=== PATIENT | female | born 1990 | race Caucasian/White ===

== ENCOUNTER 2023-11-19 12:42 | Emergency (ER) | payer OTHER ==
[~2023-11-19] VITALS: Wt 72.6 kg
[2023-11-19 15:40] LABS: BASO % 0.3 % (0.0-1.0); EOS # 0.1 10*3/uL (0.0-0.4); EOS % 1.5 % (1.0-4.0); HEMATOCRIT 36.7 % (37.0-47.0); LYMPH % 34.6 % (27.0-41.0); MEAN CELL VOLUME 95.6 fl (81.0-99.0); MEAN CORPUSCULAR HGB 32.3 pg (27.0-31.0); MEAN CORPUSCULAR HGB CONC 33.8 g/dl (33.0-37.0); MEAN PLATELET VOLUME 9.2 fl (9.6-12.3); MONO # 0.5 10*3/uL (0.1-1.0); MONO % 5.2 % (3.0-9.0); NEUT % 58.2 % (47.0-73.0); PLATELET COUNT AUTOMATED 266 10*3/uL (130-400); RED BLOOD COUNT 3.84 10*6/uL (4.10-5.10); RED CELL DISTRI WIDTH 12.4 % (0-14.5); WHITE BLOOD COUNT 8.7 10*3/uL (4.8-10.8)
[2023-11-19 16:04] LABS: ALKALINE PHOSPHATASE 60 U/L (46-116); BUN 12 mg/dl (9-23); CHLORIDE 106 mmol/L (98-107); LIPASE 27 U/L (12-53); SGPT/ALT 18 U/L (5-49)
[2023-11-19 16:05] LABS: BETA-HCG, QUANT < 3.0 mIU/mL (3-10)
[2023-11-19] MEDS ORDERED: MECLIZINE HCL25 M2 PO (18:24)
[2023-11-19] MEDS ORDERED: ONDANSETRON4 MG SL (18:24)
== END 2023-11-19 18:37 | disposition home or self-care (01) ==
LOC: ED 12:42
PROVIDERS: Emergency Medicine
DX: R42 Dizziness and giddiness (principal); R11.0 Nausea; R10.2 Pelvic and perineal pain; I10 Essential (primary) hypertension; F31.9 Bipolar disorder, unspecified; Z88.6 Allergy status to analgesic agent; Z90.49 Acquired absence of other specified parts of digestive tract; Z98.890 Other specified postprocedural states